=== PATIENT | female | born 1975 | race Caucasian/White ===

== ENCOUNTER 2020-02-22 16:23 | Emergency (ER) | payer OTHER, SELFPAY ==
[2020-02-22 16:24] VITALS: BP 129/78; PULSE 69; RESP 15; TEMP 36.4
[2020-02-22 16:29] VITALS: BP 142/82; PULSE 76; RESP 18; TEMP 36.5; O2SAT 95; BMI 33.8
--- NOTE | 2020-02-22 17:27 | W.ED.EXTPRO ---
HPI - Extremity Problem General: Chief complaint: Extremity Injury, Upper Stated complaint: shooting pain down arms Time Seen by Provider: 02/22/20 17:21 History of Present Illness: HPI Narrative: Patient complaining about bilateral tennis elbow which he has had in past had a cortisone shot in right elbow previously said she would like to have something now because work is hurting her elbows again Complaint: extremity pain Onset (ago): week(s) Pain Consistency: constant Location: left, right and upper extremity Severity scale (1-10): 6 Quality: aching Radiation: none Relieving factors: rest Exacerbating factors: range of motion Associated symptoms: Reports no associated symptoms; Deny chest pain, fever(s) or rash Review of Systems General: Reports: 10 or more systems reviewed and unremarkable except in HPI and below Const: Denies: fever(s), chills or diaphoresis Eyes: Denies: blurry vision or eye redness ENMT: Denies: throat pain, dental pain or disequilibrium Card: Denies: chest pain, palpitations or irregular heart rhythm Resp: Denies: dyspnea, productive cough, non-productive cough or wheezing GI: Denies: abdominal pain, nausea or vomiting : Denies: difficulty voiding or dysuria Musc: Reports: joint pain (Right elbow and left elbow) and limited range of motion; Denies: back pain Skin/Breast: Denies: rash or pruritus Neuro: Denies: headache(s), weakness in extremities or behavioral changes Deondre/Lymph: Denies: easy bruising Physical Exam Const: COMMON NORMALS: no acute distress, patient oriented x3, healthy appearing and alert GENERAL APPEARANCE: cooperative, comfortable and well hydrated HENMT: COMMON NORMALS: normocephalic, Normal external nose present and moist oral mucous membranes HEAD & SCALP: normocephalic NOSE: Normal external nose present Eye: COMMON NORMALS: Equal, round and reactive pupils present and EOMs intact bilaterally GENERAL EYE: appearance normal, both eyes and all related structures PUPIL: Yes Equal, round and reactive pupils present Neck/C-Spine: COMMON NORMALS: full ROM and no lymphadenopathy GENERAL: Yes normal visual inspection and Yes trachea midline CERVICAL SPINE: Yes cervical ROM normal Lymph: LYMPHATIC: no lymphadenopathy noted Chest: COMMONS NORMALS: normal inspection of the chest Resp: COMMON NORMALS: normal respiratory effort : COMMON NORMALS: Yes no CVA tenderness BLADDER/KIDNEY EXAM: Yes no CVA tenderness Back/Pelvis: COMMON NORMALS: no CVA tenderness and thoracic and lumbar spine normal to inspection Extremity: COMMON NORMALS: normal to inspection and capillary refill normal Neuro: COMMON NORMALS: patient oriented x3 and no focal motor deficits SENSORIUM/ORIENTATION: Yes alert Psych: COMMON NORMALS: mental status grossly normal, Normal thought process present and cooperative ACTIVITY/MOTOR BEHAVIOR: Yes appropriate eye contact THOUGHT PROCESS: Normal thought process present Skin: COMMON NORMALS: no rashes or lesions noted and turgor normal GENERAL SKIN EXAM: no rashes or lesions noted and turgor normal Course Vital Signs: Vital signs: Vital Signs Temperature 97.7 F 02/22/20 17:56 Pulse Rate 76 02/22/20 16:29 Respiratory Rate 18 02/22/20 17:56 Blood Pressure 142/82 02/22/20 16:29 Pulse Oximetry 95 02/22/20 17:56 Discharge Plan Discharge Patient Disposition: Home Clinical Impression: Bilateral tennis elbow Condition: Stable Prescriptions: New Voltaren 1 % gel 2 gm TOPICAL QID Qty: 100 RF: 0 Discharge Orders: Discharge Order (Routine); Ordered 02/22/20 Ordered By: Jones Zamorano Discharge Diet: Usual diet Discharge Activity: Increase activity as tolerated Patient Instructions: Tennis Elbow Exercises (GEN), Tennis Elbow (ED) Activity Restrictions/Additional Instructions: follow up with your health care provider if no improvement, wear tennis elbow band Stand Alone Forms: Work/School Release Discharge Date/Time: 02/22/20 17:45 Coding Level of Care Code ED Operations Vice President for Chg Fwd Exam Comprehensive
[2020-02-22] MEDS: methylPREDNISolone (DEPO) 80 MG/ML INJ 1 mL IM (17:42)
[2020-02-22 17:56] VITALS: RESP 18; TEMP 36.5; O2SAT 95
== END 2020-02-22 17:45 | disposition home or self-care (01) ==
PROVIDERS: Emergency Provider Nurse Practitioner Family
DX: M77.12 Lateral epicondylitis, left elbow (principal); M77.11 Lateral epicondylitis, right elbow
CPT/HCPCS: 12345; 96372; 99281; 99283; J1040